=== PATIENT | female | born 2000 | race Two or more races ===

== ENCOUNTER 2023-12-25 07:22 | Emergency (ER) | payer SELFPAY ==
[~2023-12-25] VITALS: Ht 172.7 cm; Wt 123.0 kg
[2023-12-25 07:24] VITALS: O2SAT 100
[2023-12-25] MEDS: ACETAMINOPHEN 325MG TABLET PO ONE (08:09)
[2023-12-25] MEDS: LIDOCAINE 5% PATCH TOP SCH (08:09)
[2023-12-25] MEDS ORDERED: LIDO700A15 TP (09:01)
[2023-12-25] MEDS ORDERED: NAPR220C61 MT (09:01)
[2023-12-25 09:20] VITALS: BP 128/78; PULSE 80; RESP 16; TEMP 97.8
== END 2023-12-25 09:26 | disposition home or self-care (01) ==
LOC: ER 07:22
DX: S20.219A Contusion of unspecified front wall of thorax, initial encounter (principal); V98.8XXA Other specified transport accidents, initial encounter; Y93.89 Activity, other specified; Y92.89 Other specified places as the place of occurrence of the external cause; Y99.8 Other external cause status
CPT/HCPCS: 71101; 81025; 99283